=== PATIENT | male | born 1975 | race Hispanic/Latino ===

== ENCOUNTER 2023-05-09 12:57 | Inpatient (IN) | payer BC ==
[~2023-05-09] VITALS: Ht 180.3 cm; Wt 121.1 kg
[2023-05-09 13:43] VITALS: BP 133/62; PULSE 75; RESP 18
[2023-05-09 13:45] VITALS: O2SAT 98
[2023-05-09] MEDS ORDERED: POLYETHYLENE GLYCOL 3350 17 GM POWD.PACK PO PRN (15:00)
[2023-05-09] MEDS ORDERED: POTASSIUM CHLORIDE 10MEQ/100ML 100 ML IV PRN (15:00)
[2023-05-09] MEDS ORDERED: ALBUTEROL 0.083% 2.5 MG/3 ML INH IH PRN (15:00)
[2023-05-09] MEDS ORDERED: KCL 20 MEQ ERTAB PO PRN (15:00)
[2023-05-09] MEDS ORDERED: DOCUSATE SODIUM 100 MG CAP PO PRN (15:00)
[2023-05-09] MEDS ORDERED: DIPHENHYDRAMINE HCL 25 MG CAPSULE PO PRN (15:00)
[2023-05-09] MEDS ORDERED: DiphenhydrAMINE HCL 50 MG/ML VIAL IV PRN (15:00)
[2023-05-09] MEDS ORDERED: POTASSIUM CHLORIDE 20MEQ/100ML 100 ML IV PRN (15:00)
[2023-05-09] MEDS ORDERED: ONDANSETRON 4MG INJ IV PRN (15:00)
[2023-05-09] MEDS ORDERED: GUAIFENESIN SUGAR-FREE 100 MG/5 ML UDCUP PO PRN (15:00)
[2023-05-09] MEDS ORDERED: LOPERAMIDE HCL 2 MG CAP PO PRN (15:00)
[2023-05-09] MEDS ORDERED: HYDRALAZINE 25MG TABLET PO PRN (15:00)
[2023-05-09] MEDS ORDERED: NITROGLYCERIN 0.4 MG SL TAB SL PRN (15:00)
[2023-05-09] MEDS ORDERED: POTASSIUM CHLORIDE 10% ELIXIR 20 MEQ/15 ML UDCUP PO PRN (15:00)
[2023-05-09] MEDS ORDERED: LACTULOSE 20 GM/30 ML UDCUP PO PRN (15:00)
[2023-05-09 16:00] VITALS: BP 121/55; PULSE 65; RESP 20
[2023-05-09] MEDS ORDERED: FUROSEMIDE 40 MG TABLET PO ONE (16:00)
[2023-05-09 16:02] LABS: BASOPHILS # (AUTO) 0.08 K/uL (0.00-0.20); BASOPHILS % (AUTO) 0.7 % (0.0-5.0); EOSINOPHILS # (AUTO) 0.18 K/uL (0.00-0.70); EOSINOPHILS % (AUTO) 1.6 % (0.0-8.0); HEMATOCRIT 47.3 % (42-54); IMMATURE GRANULOCYTE ABSOLUTE 0.14 K/uL (0-1); LYMPHOCYTES # (AUTO) 2.6 K/uL (1.0-4.8); LYMPHOCYTES % (AUTO) 23.5 % (21.0-51.0); MEAN CORPUSCULAR HEMOGLOBIN 26.8 pg (27.0-33.0); MEAN CORPUSCULAR HGB CONC 32.1 g/dL (32.0-36.0); MEAN CORPUSCULAR VOLUME 83.4 fL (79-99); MONOCYTES % (AUTO) 8.7 % (3.0-13.0); NEUTROPHILS % (AUTO) 64.2 % (40.0-77.0); PLATELET COUNT (AUTO) 290 K/uL (130-400); RED BLOOD CELL COUNT(AUTO) 5.67 MIL/uL (4.50-6.20); RED CELL DISTRIBUTION WIDTH 14.6 % (11.0-15.5)
[2023-05-09 16:21] LABS: ALBUMIN 3.4 g/dL (3.5-5.0); BILIRUBIN,TOTAL 0.3 mg/dL (0.2-1.0); CREATININE 1.4 mg/dL (0.5-1.5); MAGNESIUM 1.8 mg/dL (1.80-2.40); PHOSPHORUS 4.1 mg/dL (2.5-4.9); POTASSIUM 4.4 mmol/L (3.5-5.1); TOTAL PROTEIN, SERUM 6.7 g/dL (6.0-8.3)
[2023-05-09] MEDS ORDERED: VANCOMYCIN PROTOCOL PER PHARMACY IV SCH (16:30)
[2023-05-09] MEDS: CEFEPIME HCL 1 GM VIAL IVPB SCH (17:25)
[2023-05-09] MEDS ORDERED: VANCOMYCIN 2GM/500 ML BAG 500 ML IV ONE (20:00)
[2023-05-09 20:11] VITALS: BP 147/64; PULSE 77; RESP 20
[2023-05-09 21:00] VITALS: O2SAT 98
[2023-05-09] MEDS ORDERED: ENOXAPARIN SODIUM 100 MG/1 ML SQ SCH (21:00)
[2023-05-09] MEDS: FAMOTIDINE 20MG TAB PO SCH (21:08)
[2023-05-09] MEDS: ATORVASTATIN 40 MG TABLET PO SCH (21:08)
[2023-05-09 21:40] LABS: APPEARANCE,URINE CLEAR (CLEAR); BILIRUBIN,URINE NEGATIVE (NEGATIVE); COLOR,URINE COLORLESS (YELLOW); GLUCOSE, URINE (UA) NEGATIVE (NEGATIVE); KETONES,URINE NEGATIVE (NEGATIVE); LEUKOCYTE ESTERASE ,URINE NEGATIVE Leu/uL (NEGATIVE); NITRATE,URINE NEGATIVE (NEGATIVE); OCCULT BLOOD,URINE NEGATIVE (NEGATIVE); PROTEIN,URINE NEGATIVE (NEGATIVE); UROBILINOGEN,URINE 0.2 mg/dL (0.2-1.0)
[2023-05-09 21:41] LABS: RBC,URINE 0-1 /HPF (0-1); WBC,URINE 0-1 /HPF (0-1)
[2023-05-09 23:56] VITALS: BP 119/46; PULSE 85; RESP 20
[2023-05-10] VITALS (8 sets, daily range): BP systolic 101–122; BP diastolic 48–64; PULSE 64–80; RESP 18–20; O2SAT 94–96
[2023-05-10] MEDS: MAGNESIUM 2GM PREMIX 50ML 50 ML IV PRN (00:24)
[2023-05-10] MEDS: CEFEPIME HCL 1 GM VIAL IVPB SCH ×3 (01:25→16:12)
[2023-05-10] MEDS ORDERED: MELATONIN 5 MG TABLET PO ONE (02:23)
[2023-05-10] MEDS ORDERED: MELATONIN 5 MG TABLET PO SCH (02:30)
[2023-05-10 03:49] LABS: BASOPHILS # (AUTO) 0.08 K/uL (0.00-0.20); BASOPHILS % (AUTO) 0.6 % (0.0-5.0); EOSINOPHILS % (AUTO) 2.3 % (0.0-8.0); HEMATOCRIT 43.8 % (42-54); IMMATURE GRANULOCYTE ABSOLUTE 0.12 K/uL (0-1); LYMPHOCYTES # (AUTO) 3.7 K/uL (1.0-4.8); LYMPHOCYTES % (AUTO) 28.6 % (21.0-51.0); MEAN CORPUSCULAR HEMOGLOBIN 26.2 pg (27.0-33.0); MEAN CORPUSCULAR VOLUME 81.9 fL (79-99); MONOCYTES # (AUTO) 1.3 K/uL (0.1-1.0); MONOCYTES % (AUTO) 9.9 % (3.0-13.0); NEUTROPHILS # (AUTO) 7.4 K/uL (1.8-7.7); NEUTROPHILS % (AUTO) 57.7 % (40.0-77.0); PLATELET COUNT (AUTO) 311 K/uL (130-400); RED BLOOD CELL COUNT(AUTO) 5.35 MIL/uL (4.50-6.20); RED CELL DISTRIBUTION WIDTH 14.4 % (11.0-15.5); WHITE BLOOD COUNT (AUTO) 12.8 K/uL (4.8-10.8)
[2023-05-10 04:05] LABS: CREATININE 1.3 mg/dL (0.5-1.5); MAGNESIUM 2.1 mg/dL (1.80-2.40)
[2023-05-10] MEDS: ASPIRIN 81 MG EC TAB PO SCH (08:38)
[2023-05-10] MEDS: FUROSEMIDE 40 MG TABLET PO SCH (08:38)
[2023-05-10] MEDS: FAMOTIDINE 20MG TAB PO SCH ×2 (08:38→20:50)
[2023-05-10] MEDS: VANCOMYCIN 1.5 GM/250 ML BAG 250 ML IV SCH ×2 (08:43→20:50)
[2023-05-10] MEDS ORDERED: CLOPIDOGREL 75MG TAB PO SCH (09:00)
[2023-05-10] MEDS ORDERED: LISINOPRIL 5 MG TABLET PO ONE (09:00)
[2023-05-10] MEDS ORDERED: CETIRIZINE HCL 5 MG TABLET PO SCH (12:35)
[2023-05-10] MEDS ORDERED: DIPHENHYDRAMINE HCL 25 MG CAPSULE PO PRN (19:00)
[2023-05-10] MEDS: ATORVASTATIN 40 MG TABLET PO SCH (20:50)
[2023-05-11] VITALS (7 sets, daily range): BP systolic 102–122; BP diastolic 49–66; PULSE 62–97; RESP 18–20; O2SAT 95–98
[2023-05-11] MEDS: CEFEPIME HCL 1 GM VIAL IVPB SCH ×3 (02:03→16:41)
[2023-05-11] MEDS: VANCOMYCIN 1.5 GM/250 ML BAG 250 ML IV SCH ×2 (10:49→20:18)
[2023-05-11] MEDS: FUROSEMIDE 40 MG TABLET PO SCH (10:49)
[2023-05-11] MEDS: ASPIRIN 81 MG EC TAB PO SCH (10:49)
[2023-05-11] MEDS: CETIRIZINE HCL 5 MG TABLET PO SCH (10:49)
[2023-05-11] MEDS: FAMOTIDINE 20MG TAB PO SCH ×2 (10:50→20:19)
[2023-05-11] MEDS: ALPRAZOLAM 0.5 MG TABLET PO PRN (15:09)
[2023-05-11] MEDS: ATORVASTATIN 40 MG TABLET PO SCH (20:19)
[2023-05-11] MEDS: ACETAMINOPHEN 325 MG TAB PO PRN (20:19)
[2023-05-11] MEDS ORDERED: ZOLPIDEM TARTRATE 5 MG TAB PO SCH (21:00)
[2023-05-12] VITALS (19 sets, daily range): BP systolic 95–135; BP diastolic 40–67; PULSE 79–96; RESP 15–22; O2SAT 95–96
[2023-05-12] MEDS: CEFEPIME HCL 1 GM VIAL IVPB SCH ×3 (01:19→16:53)
[2023-05-12 03:55] LABS: BASOPHILS % (AUTO) 0.7 % (0.0-5.0); EOSINOPHILS # (AUTO) 0.29 K/uL (0.00-0.70); HEMATOCRIT 42.8 % (42-54); IMMATURE GRANULOCYTE ABSOLUTE 0.12 K/uL (0-1); LYMPHOCYTES # (AUTO) 2.8 K/uL (1.0-4.8); LYMPHOCYTES % (AUTO) 19.4 % (21.0-51.0); MEAN CORPUSCULAR HEMOGLOBIN 26.6 pg (27.0-33.0); MEAN CORPUSCULAR HGB CONC 32.5 g/dL (32.0-36.0); MONOCYTES # (AUTO) 1.5 K/uL (0.1-1.0); NEUTROPHILS # (AUTO) 9.9 K/uL (1.8-7.7); NEUTROPHILS % (AUTO) 67.1 % (40.0-77.0); PLATELET COUNT (AUTO) 308 K/uL (130-400); RED BLOOD CELL COUNT(AUTO) 5.22 MIL/uL (4.50-6.20); RED CELL DISTRIBUTION WIDTH 14.6 % (11.0-15.5); WHITE BLOOD COUNT (AUTO) 14.7 K/uL (4.8-10.8)
[2023-05-12 04:15] LABS: CREATININE 1.3 mg/dL (0.5-1.5); POTASSIUM 3.6 mmol/L (3.5-5.1)
[2023-05-12] MEDS: FUROSEMIDE 40 MG TABLET PO SCH (07:39)
[2023-05-12] MEDS: ASPIRIN 81 MG EC TAB PO SCH (07:39)
[2023-05-12] MEDS: CETIRIZINE HCL 5 MG TABLET PO SCH (07:40)
[2023-05-12] MEDS: FAMOTIDINE 20MG TAB PO SCH ×2 (07:40→22:01)
[2023-05-12] MEDS ORDERED: LIDOCAINE HCL 2% VISCOUS 15 ML UDCUP ONE (07:52)
[2023-05-12] MEDS ORDERED: FENTANYL CITRATE PF 50 MCG/1 ML 2ML VIAL ONE ×2 (07:55→08:28)
[2023-05-12] MEDS ORDERED: MIDAZOLAM HCL 1 MG/ML 2ML VIAL ONE (07:56)
[2023-05-12] MEDS ORDERED: LIDOCAINE HCL 2% VISCOUS 15 ML UDCUP PO ONE (08:00)
[2023-05-12] MEDS: VANCOMYCIN 1.5 GM/250 ML BAG 250 ML IV SCH (08:06)
[2023-05-12] MEDS: ALPRAZOLAM 0.5 MG TABLET PO PRN (14:43)
[2023-05-12] MEDS: ACETAMINOPHEN 325 MG TAB PO PRN ×2 (14:44→23:13)
[2023-05-12] MEDS ORDERED: VANCOMYCIN 1.25 GM/250 ML BAG 250 ML IV SCH (20:30)
[2023-05-12] MEDS: ATORVASTATIN 40 MG TABLET PO SCH (22:01)
[2023-05-12] MEDS ORDERED: ZOLPIDEM TARTRATE 5 MG TAB PO ONE (23:30)
[2023-05-13] MEDS: CEFEPIME HCL 1 GM VIAL IVPB SCH ×3 (00:42→18:11)
[2023-05-13 04:00] VITALS: BP 113/57; PULSE 73; RESP 20
[2023-05-13 07:00] VITALS: BP 112/67; PULSE 79; RESP 22
[2023-05-13 08:00] VITALS: O2SAT 95
[2023-05-13] MEDS: ASPIRIN 81 MG EC TAB PO SCH (08:38)
[2023-05-13] MEDS: FAMOTIDINE 20MG TAB PO SCH ×4 (08:38→20:37)
[2023-05-13] MEDS: FUROSEMIDE 40 MG TABLET PO SCH ×2 (08:39→09:00)
[2023-05-13] MEDS: CETIRIZINE HCL 5 MG TABLET PO SCH (08:40)
[2023-05-13] MEDS: ACETAMINOPHEN 325 MG TAB PO PRN (10:10)
[2023-05-13] MEDS: VANCOMYCIN 1.25 GM/250 ML BAG 250 ML IV SCH ×2 (10:14→22:00)
[2023-05-13 12:00] VITALS: BP 126/56; PULSE 69; RESP 22
[2023-05-13] MEDS: ALPRAZOLAM 0.5 MG TABLET PO PRN (14:31)
[2023-05-13] MEDS: LEVOFLOXACIN 750 MG/D5W 150ML BAG IV SCH (14:52)
[2023-05-13 15:21] LABS: AMPHET/METH SCREEN,URINE NEGATIVE (NEGATIVE); BARBITURATE SCREEN, URINE NEGATIVE (NEGATIVE); BENZODIAZEPINES SCREEN,URINE NEGATIVE (NEGATIVE); CANNABINOID SCREEN,URINE NEGATIVE (NEGATIVE); COCAINE SCREEN,URINE NEGATIVE (NEGATIVE); OPIATE SCREEN,URINE NEGATIVE (NEGATIVE); PHENCYCLIDINE SCREEN,URINE NEGATIVE (NEGATIVE)
[2023-05-13 16:00] VITALS: BP 138/63; PULSE 64; RESP 20
[2023-05-13] MEDS: IBUPROFEN 600 MG TABLET PO PRN (18:16)
[2023-05-13 20:00] VITALS: BP 135/67; PULSE 85; RESP 20; O2SAT 97
[2023-05-13] MEDS: ZOLPIDEM TARTRATE 5 MG TAB PO SCH (20:31)
[2023-05-13] MEDS: ATORVASTATIN 40 MG TABLET PO SCH ×2 (20:31→20:37)
[2023-05-14] VITALS (8 sets, daily range): BP systolic 113–153; BP diastolic 54–73; PULSE 72–109; RESP 18–22; O2SAT 97
[2023-05-14] MEDS: CEFEPIME HCL 1 GM VIAL IVPB SCH ×3 (00:40→17:11)
[2023-05-14 06:46] LABS: BASOPHILS % (AUTO) 0.9 % (0.0-5.0); EOSINOPHILS # (AUTO) 0.35 K/uL (0.00-0.70); EOSINOPHILS % (AUTO) 3.3 % (0.0-8.0); HEMATOCRIT 41.5 % (42-54); IMMATURE GRANULOCYTE ABSOLUTE 0.07 K/uL (0-1); LYMPHOCYTES # (AUTO) 2.4 K/uL (1.0-4.8); LYMPHOCYTES % (AUTO) 22.8 % (21.0-51.0); MEAN CORPUSCULAR HEMOGLOBIN 26.7 pg (27.0-33.0); MEAN CORPUSCULAR VOLUME 80.9 fL (79-99); MONOCYTES # (AUTO) 1.3 K/uL (0.1-1.0); MONOCYTES % (AUTO) 11.8 % (3.0-13.0); NEUTROPHILS # (AUTO) 6.5 K/uL (1.8-7.7); NEUTROPHILS % (AUTO) 60.5 % (40.0-77.0); PLATELET COUNT (AUTO) 275 K/uL (130-400); RED BLOOD CELL COUNT(AUTO) 5.13 MIL/uL (4.50-6.20); RED CELL DISTRIBUTION WIDTH 14.3 % (11.0-15.5); WHITE BLOOD COUNT (AUTO) 10.7 K/uL (4.8-10.8)
[2023-05-14 07:01] LABS: ALBUMIN 3.1 g/dL (3.5-5.0); BILIRUBIN,TOTAL 0.5 mg/dL (0.2-1.0); CREATININE 1.1 mg/dL (0.5-1.5); MAGNESIUM 1.8 mg/dL (1.80-2.40); POTASSIUM 4.5 mmol/L (3.5-5.1)
[2023-05-14] MEDS: FAMOTIDINE 20MG TAB PO SCH ×2 (08:49→19:57)
[2023-05-14] MEDS: ASPIRIN 81 MG EC TAB PO SCH (08:49)
[2023-05-14] MEDS: CETIRIZINE HCL 5 MG TABLET PO SCH (08:49)
[2023-05-14] MEDS: FUROSEMIDE 40 MG TABLET PO SCH (08:50)
[2023-05-14] MEDS: ALPRAZOLAM 0.5 MG TABLET PO PRN ×3 (09:03→23:04)
[2023-05-14 10:20] LABS: ABG HCO3 20.8 mmol/L (21.0-28.0); ABG OXYGEN SATURATION 95.3 % (95.0-99.0); ABG PCO2 38 mmHg (35-48); ABG PH 7.361 (7.35-7.450); PO2, ARTERIAL BG 78.7 mmHg (83.0-108.0); VENT MODE, BG RA (ROOM AIR)
[2023-05-14] MEDS: VANCOMYCIN 1.25 GM/250 ML BAG 250 ML IV SCH ×2 (10:56→23:04)
[2023-05-14] MEDS: LEVOFLOXACIN 750 MG/D5W 150ML BAG IV SCH (15:51)
[2023-05-14] MEDS: IBUPROFEN 600 MG TABLET PO PRN (18:42)
[2023-05-14] MEDS: ATORVASTATIN 40 MG TABLET PO SCH (19:57)
[2023-05-14] MEDS: ZOLPIDEM TARTRATE 5 MG TAB PO SCH (19:58)
[2023-05-15] VITALS (14 sets, daily range): BP systolic 106–132; BP diastolic 51–69; PULSE 66–101; RESP 14–19; O2SAT 95–98
[2023-05-15] MEDS: CEFEPIME HCL 1 GM VIAL IVPB SCH ×3 (01:23→15:57)
[2023-05-15] MEDS: FUROSEMIDE 40 MG TABLET PO SCH (08:09)
[2023-05-15] MEDS: CETIRIZINE HCL 5 MG TABLET PO SCH (08:09)
[2023-05-15] MEDS: FAMOTIDINE 20MG TAB PO SCH ×2 (08:09→19:45)
[2023-05-15] MEDS: ASPIRIN 81 MG EC TAB PO SCH (08:09)
[2023-05-15] MEDS: VANCOMYCIN 1.25 GM/250 ML BAG 250 ML IV SCH ×2 (10:10→21:39)
[2023-05-15] MEDS ORDERED: FENTANYL CITRATE PF 50 MCG/1 ML 2ML VIAL ONE (12:41)
[2023-05-15] MEDS ORDERED: LIDOCAINE HCL 400MG/20ML VIAL ONE (12:41)
[2023-05-15] MEDS ORDERED: VERAPAMIL HCL 2.5 MG/ML VIAL ONE (12:42)
[2023-05-15] MEDS ORDERED: NITROGLYCERIN 50MG VIAL ONE (12:42)
[2023-05-15] MEDS ORDERED: MIDAZOLAM HCL 1 MG/ML 2ML VIAL ONE (12:42)
[2023-05-15] MEDS ORDERED: IOHEXOL-350 50ML VIAL IV ONE (12:42)
[2023-05-15] MEDS ORDERED: HEPARIN 10,000 UNIT/10ML (1,000 UNIT/ML) VIAL ONE (12:42)
[2023-05-15] MEDS ORDERED: IOHEXOL 350 MG/ML 100ML INFUS..BTL IV ONE (12:42)
[2023-05-15] MEDS ORDERED: IOHEXOL-350 75 ML VIAL IV ONE (13:40)
[2023-05-15] MEDS ORDERED: 0.9%NACL 1000ML 1,000 ML IV SCH (14:30)
[2023-05-15] MEDS: LEVOFLOXACIN 750 MG/D5W 150ML BAG IV SCH (14:35)
[2023-05-15] MEDS: ALPRAZOLAM 0.5 MG TABLET PO PRN (17:25)
[2023-05-15] MEDS: ACETAMINOPHEN 325 MG TAB PO PRN (17:25)
[2023-05-15] MEDS: ZOLPIDEM TARTRATE 5 MG TAB PO SCH (19:44)
[2023-05-15] MEDS: ATORVASTATIN 40 MG TABLET PO SCH (19:45)
[2023-05-16] VITALS (9 sets, daily range): BP systolic 110–139; BP diastolic 55–77; PULSE 77–103; RESP 18; O2SAT 97
[2023-05-16] MEDS: CEFEPIME HCL 1 GM VIAL IVPB SCH ×4 (00:42→23:55)
[2023-05-16] MEDS: ALPRAZOLAM 0.5 MG TABLET PO PRN ×3 (00:42→23:17)
[2023-05-16] MEDS: IBUPROFEN 600 MG TABLET PO PRN ×2 (03:03→16:02)
[2023-05-16] MEDS: FUROSEMIDE 40 MG TABLET PO SCH (08:43)
[2023-05-16] MEDS: CETIRIZINE HCL 5 MG TABLET PO SCH (08:43)
[2023-05-16] MEDS: ASPIRIN 81 MG EC TAB PO SCH (08:43)
[2023-05-16] MEDS: FAMOTIDINE 20MG TAB PO SCH ×2 (08:43→21:02)
[2023-05-16 09:29] LABS: BASOPHILS # (AUTO) 0.08 K/uL (0.00-0.20); BASOPHILS % (AUTO) 0.7 % (0.0-5.0); EOSINOPHILS # (AUTO) 0.27 K/uL (0.00-0.70); EOSINOPHILS % (AUTO) 2.3 % (0.0-8.0); HEMATOCRIT 42.7 % (42-54); IMMATURE GRANULOCYTE ABSOLUTE 0.06 K/uL (0-1); LYMPHOCYTES # (AUTO) 2.1 K/uL (1.0-4.8); LYMPHOCYTES % (AUTO) 17.8 % (21.0-51.0); MEAN CORPUSCULAR HEMOGLOBIN 26.5 pg (27.0-33.0); MEAN CORPUSCULAR HGB CONC 32.8 g/dL (32.0-36.0); MEAN CORPUSCULAR VOLUME 80.7 fL (79-99); MONOCYTES # (AUTO) 1.2 K/uL (0.1-1.0); MONOCYTES % (AUTO) 9.9 % (3.0-13.0); NEUTROPHILS % (AUTO) 68.8 % (40.0-77.0); PLATELET COUNT (AUTO) 313 K/uL (130-400); RED BLOOD CELL COUNT(AUTO) 5.29 MIL/uL (4.50-6.20); RED CELL DISTRIBUTION WIDTH 14.6 % (11.0-15.5); WHITE BLOOD COUNT (AUTO) 11.6 K/uL (4.8-10.8)
[2023-05-16 09:57] LABS: CREATININE 1.2 mg/dL (0.5-1.5); MAGNESIUM 1.7 mg/dL (1.80-2.40); POTASSIUM 3.8 mmol/L (3.5-5.1)
[2023-05-16] MEDS ORDERED: COMPOUND IV REFRIGERATED 1 EACH IVSOLN MISC PRN (10:30)
[2023-05-16] MEDS: VANCOMYCIN 1.25 GM/250 ML BAG 250 ML IV SCH ×2 (10:51→21:03)
[2023-05-16] MEDS ORDERED: VANCOMYCIN 1.25 GM/250 ML BAG 250 ML IV SCH (11:00)
[2023-05-16] MEDS: LEVOFLOXACIN 750 MG/D5W 150ML BAG IV SCH (14:15)
[2023-05-16] MEDS ORDERED: KETOROLAC 60 MG VIAL (30MG/ML) IM ONE (17:00)
[2023-05-16] MEDS: MAGNESIUM 2GM PREMIX 50ML 50 ML IV PRN (17:46)
[2023-05-16] MEDS ORDERED: KETOROLAC 15MG/ML VIAL (15MG/ML) ONE (17:52)
[2023-05-16] MEDS ORDERED: SOLU-MEDROL 40MG VIAL IVP ONE (18:00)
[2023-05-16] MEDS: ATORVASTATIN 40 MG TABLET PO SCH (21:02)
[2023-05-16] MEDS: ALLOPURINOL 100 MG TABLET PO SCH (21:02)
[2023-05-16] MEDS: ZOLPIDEM TARTRATE 5 MG TAB PO SCH (21:03)
[2023-05-17 04:16] VITALS: BP 106/48; PULSE 104; RESP 18
[2023-05-17] MEDS: VANCOMYCIN 1.25 GM/250 ML BAG 250 ML IV SCH ×2 (04:58→12:15)
[2023-05-17 08:01] VITALS: BP 122/57; PULSE 70; RESP 18
[2023-05-17 08:11] VITALS: O2SAT 98
[2023-05-17] MEDS: ASPIRIN 81 MG EC TAB PO SCH (08:23)
[2023-05-17] MEDS: CETIRIZINE HCL 5 MG TABLET PO SCH (08:23)
[2023-05-17] MEDS: ALLOPURINOL 100 MG TABLET PO SCH ×2 (08:23→14:20)
[2023-05-17] MEDS: CEFEPIME HCL 1 GM VIAL IVPB SCH ×2 (08:23→15:10)
[2023-05-17] MEDS: FUROSEMIDE 40 MG TABLET PO SCH (08:24)
[2023-05-17] MEDS: FAMOTIDINE 20MG TAB PO SCH (08:24)
[2023-05-17 11:38] VITALS: BP 125/52; PULSE 72; RESP 18
[2023-05-17] MEDS: LEVOFLOXACIN 750 MG/D5W 150ML BAG IV SCH (14:20)
[2023-05-17] MEDS: ALPRAZOLAM 0.5 MG TABLET PO PRN (14:27)
[2023-05-17 16:03] VITALS: BP 136/57; PULSE 88; RESP 18
== END 2023-05-17 16:27 | disposition left against medical advice (07) | DRG 280 ==
LOC: 2AH 13:55 → INTOOBSV 13:55 → OBSVTOIN 13:55
PROVIDERS: ADMIT Internal Medicine Pulmonary Disease; ATTEND Internal Medicine Pulmonary Disease
PROC: B24BZZ4 Ultrasonography of Heart with Aorta, Transesophageal (ICD-10-PCS; principal; 2023-05-12)
PROC: 4A023N7 Measurement of Cardiac Sampling and Pressure, Left Heart, Percutaneous Approach (ICD-10-PCS; 2023-05-15)
PROC: B2111ZZ Fluoroscopy of Multiple Coronary Arteries using Low Osmolar Contrast (ICD-10-PCS; 2023-05-15)
PROC: B2151ZZ Fluoroscopy of Left Heart using Low Osmolar Contrast (ICD-10-PCS; 2023-05-15)
DX: I11.0 Hypertensive heart disease with heart failure (principal); I50.43 Acute on chronic combined systolic (congestive) and diastolic (congestive) heart failure; I21.A1 Myocardial infarction type 2; E44.1 Mild protein-calorie malnutrition; I42.0 Dilated cardiomyopathy; I25.10 Atherosclerotic heart disease of native coronary artery without angina pectoris; E78.5 Hyperlipidemia, unspecified; E88.81 Metabolic syndrome and other insulin resistance; F19.90 Other psychoactive substance use, unspecified, uncomplicated; I27.20 Pulmonary hypertension, unspecified; F14.90 Cocaine use, unspecified, uncomplicated; I35.2 Nonrheumatic aortic (valve) stenosis with insufficiency; I65.29 Occlusion and stenosis of unspecified carotid artery; Z72.0 Tobacco use; Z88.1 Allergy status to other antibiotic agents; Z68.37 Body mass index [BMI] 37.0-37.9, adult
CPT/HCPCS: 36415; 36600; 71045; 80048; 80053; 80202; 80305; 81001; 82803; 83605; 83735; 84100; 84484; 84550; 85025; 86611; 86622; 86638; 87040; 93005; 93312; 93454; 93880; 94010; 99156; 99157; C1769; G0378; J0692; J1644; J1885; J1956; J2250; J2920; J3010; J3475; J3490; Q0163; Q9967; 3370; A4649; C1894; J3370; Q9965